=== PATIENT | male | born 1955 | race Asian ===

== ENCOUNTER 2018-07-31 10:26 | Outpatient (CLI) | payer OTHER, SELFPAY ==
[2018-07-31 11:02] LABS: HCT 43.3 % (40.0-50.0); HGB 14.5 g/dL (13.5-17.5)
[2018-07-31 11:50] LABS: Cholesterol 277 mg/dL (50-200); Glucose 96 mg/dL (70-100); HDL Cholesterol 39 mg/dL (40-60); LDL CHOLESTEROL 207 mg/dL (<100); Triglyceride 185 mg/dL (30-150)
== END 2018-07-31 10:46 ==
PROVIDERS: PCP General Practice; Visit Provider General Practice
DX: Z00.00 Encounter for general adult medical examination without abnormal findings (principal); E78.00 Pure hypercholesterolemia, unspecified
CPT/HCPCS: 36415; 80061; 82947; 83721; 85014; 85018

== ENCOUNTER 2018-08-24 10:13 | Day surgery (SDC) | payer OTHER, MEDICARE, SELFPAY ==
[2018-08-24 10:40] VITALS: BP 102/70; PULSE 73; RESP 16; TEMP 36.6; O2SAT 98
[2018-08-24] MEDS: Lactated Ringers 1,000 ML 80 ML IV (11:10)
--- NOTE | 2018-08-24 12:16 | COLE_ITS ---
Date of service: 08/24/18 Time of Service: 12:14 Colonoscopy Report Date of procedure: 08/24/18 Pre-op diagnosis general: heme+ Post-op diagnosis procedure note: same Procedure: ce Surgeon: Sivan Phillips Anesthesia proc note operative: GETA Estimated blood loss (mL): 0 Pathology: none sent Complications: None Disposition: same day Indications: see above Prep: Miralax Retraction Time: 10 mins Findings: ext hem/int hem- grade I Procedure Description: After informed consent was obtained the patient was taken to the procedure room and placed in a left decubitous position. Monitors were applied and a time out was done. The patients name, date of , procedure, allergies to medications and metal in their body was reviewed. The patient was then sedated. Once sedated and comfortable a rectal exam was done. sm ext hem at 6 oclokc position. Internal exam revealed a normal sphincter tone and no palpable masses. The prostate nl. The scope was then introduced and retrofelexed. sm/grade I internal hemorrhoids were identified. The scope was then advanced to the cecum [] difficulty. The TI and appendiceal orifice were identified. The prep was good. The scope was then slowly retracted over 12 minutes back into the rectum. there were no polyp/tics/AVM's or other anomalies . The scope was removed and the patient was woken up and taken back to Same day surgery in stable condition. The patient tolerated the procedure well and there were no immediate compli cations. Follow up: The patient should follow up in 10 years unless they develop changes in bowel habits or other new gastrointestinal complaints.
--- NOTE | 2018-08-24 12:17 | PDOC.DSDIS_ITS ---
Discharge Plan Disposition Patient Disposition: HOME Condition: Good Discharge Details Attending Provider: Sivan Phillips Primary Care Provider: Hao Neff Home Meds and New Rx's Prescriptions: Discontinued polyethylene glycol 3350 17 gram/dose powder 238 g PO ONCE Qty: 238 RF: 0 bisacodyl [Dulcolax (bisacodyl)] 5 mg tablet,delayed release (DR/EC) 5 mg PO ONCE Qty: 4 RF: 0 Discharge Instructions Additional Instructions: Findings: nl colon Follow up: 10 yr Please call if you develop: fevers >101.5 Nausea or Vomiting Abdominal pain that is not transient DAY SURGERY UNIT POST COLONOSCOPY INSTRUCTIONS 1. Because there will be medication in your system for the next 24 hours, you may feel a little sleepy. Your coordination will be affected. Therefore: a. Do not drive or operate dangerous equipment for 24 hours. b. Do not drink alcohol beverages for 24 hours (not even beer). c. Plan to go home and rest for the day. 2. Generally there are no restrictions on your activity after a day or so has gone by, but you may feel a bit fatigued for a few days. 3 After you arrive home you may have a light meal and return to a normal diet as you can tolerate it without feeling sick to your stomach. 4. After surgery, you may feel pain or discomfort. This should be only tr ansient, but if it persists please contact your doctor. 5. If there are any questions regarding the findings of your procedure, please feel free to contact your doctor. 6. If you are unable to contact your doctor with a problem, contact the hospital at [phone]. 7. Continue all your regular medications unless directed otherwise. I understand the above instructions and have no questions. Signature of Patient or Responsible Adult Escort Date/Time Name of Responsible Adult Escort Signature of Nurse Date/Time Activity:: no lifting over 10 #'s x24 or driving Diet:: lt sm bland diet x 24hrs DS: Diagnosis Discharge Diagnosis (1) External hemorrhoid: Status: Acute
[2018-08-24 14:33] VITALS: BP 90/63; PULSE 59; RESP 16; TEMP 35.6; O2SAT 100
--- NOTE | 2018-08-24 21:44 | PDOC.ANES ---
Date of service: 08/24/18 Time of Service: 21:44 Anesthesia Note Report Anesthesia Note: Fidel completed his colonoscopy today and tolerated the procedure and anesthetic well. One thing of note was that his systolic blood pressure in his right upper arm was 20-35 points lower than his left upper arm. This was consistent over many blood pressures and therefore blood pressure readings were used only on his left arm. His right side seemed to range between 50 and 70 systolic while his left was 90-100 systolic. I mentioned this to the [facility] nursing staff who mentioned this to Fidel. I will make his PCP, Dr. Neff, aware of this in case any followup is necessary given the possibility of abnormal flow in his subclavian artery.
== END 2018-08-24 13:13 | disposition home or self-care (01) ==
PROVIDERS: PCP General Practice; Visit Provider Surgery
PROC: 0DJD8ZZ Inspection of Lower Intestinal Tract, Via Natural or Artificial Opening Endoscopic (ICD-10-PCS; CPT 45378; principal; 2018-08-24 11:30)
DX: R19.5 Other fecal abnormalities (principal); K64.0 First degree hemorrhoids; R03.0 Elevated blood-pressure reading, without diagnosis of hypertension
CPT/HCPCS: 45378

== ENCOUNTER 2018-08-25 10:42 | Emergency (ER) | payer OTHER, MEDICARE, SELFPAY ==
[2018-08-25] VITALS (30 sets, daily range): BP systolic 99–111; BP diastolic 65–78; PULSE 57–83; RESP 12–27; TEMP 36.8; O2SAT 97–100
[2018-08-25 11:06] LABS: Absolute Basophil Count 0.02 k/cumm (0.0-0.2); Absolute Eosinophil Count 0.07 k/cumm (0.0-0.7); Absolute Lymphocyte Count 1.93 k/cumm (1.2-3.4); Absolute Monocyte Count 0.45 k/cumm (0.11-0.7); Basophils % 0.4; Eosinophils % 1.3; HCT 41.4 % (40.0-50.0); HGB 13.9 g/dL (13.5-17.5); Lymphocytes % 35.3; Mean Corp. HGB Concentration 33.6 g/dL (32.0-36.0); Mean Corpuscular Hemoglobin 26.4 pg (27.0-33.0); Mean Corpuscular Volume 78.7 fL (80-95); Mean Platelet Volume 11.7 fL (8.0-11.0); Monocytes % 8.2; Neutrophils % 54.8; Platelet Count 185 x1000/uL (130-400); RBC 5.26 m/cumm (4.50-6.00); RBC Distribution Width 13.8 % (11.8-14.1); White Blood Cell Count 5.47 k/cumm (4.4-10.8)
[2018-08-25] MEDS: Lactated Ringers 1,000 ML 500 ML IV (11:08)
[2018-08-25 11:23] LABS: ALT 22 U/L (12-78); AST 15 U/L (15-37); Albumin 3.9 g/dL (3.4-5.0); Alkaline Phosphatase 83 U/L (46-116); Anion Gap 11.5 mmol/L (3-11); BUN 12 mg/dL (7-18); Bilirubin, Total 0.6 mg/dL (0.2-1.0); CO2 27.5 mmol/L (21.0-32.0); CREATININE 0.89 mg/dL (0.70-1.30); Calcium 9.1 mg/dL (8.5-10.1); Chloride 105 mmol/L (98-107); Glucose 74 mg/dL (70-100); Magnesium 2.1 mg/dL (1.8-2.4); Potassium 3.4 mmol/L (3.5-5.1); Sodium 144 mmol/L (136-145); Total Protein 7.9 g/dL (6.4-8.2)
[2018-08-25 11:25] LABS: Troponin I < 0.02 ng/mL (0.00-0.06)
--- NOTE | 2018-08-25 11:38 | W.ED.GENAD ---
Discharge Plan Disposition Patient Disposition: HOME Condition: Stable Discharge Details Chief Complaint: Chest Pain Clinical Impression: Chest pain Primary Care Provider: Hao Neff ED Provider: Sergey Miller Home Meds and New Rx's Prescriptions: No Action No Known Home Meds RF: 0 Discharge Instructions Instructions: Chest Pain (ED) Additional Instructions: 1. Drink plenty of fluids. 2. Continue all medications as prescribed. 3. Acetaminophen 1000mg every 4 hours (up to 5 time a day) and/or ibuprofen 600mg every 6 hours as needed for fever or pain. 4. Zantac 300 mg at bedtime. Return to the Emergency Department (ED) if your condition worsens, does not improve as expected, or for ANY other concerns. Specifically, return if you have new or uncontrolled pain, worsening fever, difficulty breathing, vomiting, or are unable to drink fluids. Referrals: Paul Shah MD [ [facility] STAFF PHYSICIAN] - 08/27/18 Medical Decision Making 63-year-old gentleman presents with intermittent chest pain over the past month. Pain has been intermittent in nature and mostly worsened with activity and improved with rest. Today, he developed his typical recurrent symptoms and presents after his pain did not resolved as usual. Of note, he describes initial onset of after a meal. Nonfocal evaluation here with a nondiagnostic EKG. Limited bedside echo negative for pericardial effusion, LV dysfunction, or RV strain. Labs negative including a negative troponin. Repeat troponin also negative. Clinically stable on multiple re-evaluations with resolving symptoms. Treated with oral antacids without significant change in his chest discomfort. Reviewed clinical and diagnostic findings with recommendation for outpatient cardiology evaluation and higher level risk stratification. Discharge the plan for nightly ranitidine and outpatient cardiology follow-up in 2 days. Pt evaluated immediately prior to discharge with improved symptoms, normal vital signs, and tolerating PO. The patient feels appropriate for discharge home. Discussed clinical/diagnostic findings. Discharged with a clear plan for outpatient follow up. Given usual and customary return instructions prior to discharge. Medical Records Medical records reviewed: Yes I reviewed the patient's medical records. Imaging Data Radiologic Study: Attestation: I personally reviewed and interpreted this imaging study as follows: Imaging: Ultrasound (Bedside cardiac) My impression: Limited Cardiac Bedside Ultrasound. Findings include no pericardial effusion, no RVS, no decreased LVEF or LV WMA.. Images obtained, reviewed, and interpreted independently by myself. Images saved on ultrasound system for review. Lab Data Lab results reviewed: Yes I reviewed the patient's lab results. Lab results narrative: Laboratory Results - last 24 hr 08/25/18 08/25/18 08/25/18 10:57 10:57 13:40 WBC 5.47 RBC 5.26 Hgb 13.9 Hct 41.4 MCV 78.7 L MCH 26.4 L MCHC 33.6 RDW 13.8 Plt Count 185 MPV 11.7 H Immature Gran % 0.0 Neutrophils % 54.8 Lymphocytes % 35.3 Monocytes % 8.2 Eosinophils % 1.3 Basophils % 0.4 Absolute Neutrophils 3.00 Absolute Lymphocytes 1.93 Absolute Monocytes 0.45 Absolute Eosinophils 0.07 Absolute Basophils 0.02 Sodium 144 Potassium 3.4 L Chloride 105 Carbon Dioxide 27.5 Anion Gap 11.5 H BUN 12 Creatinine 0.89 Estimated GFR/1.73 m2 >= 60.00 Glucose 74 Calcium 9.1 Magnesium 2.1 Total Bilirubin 0.6 AST 15 ALT 22 Alkaline Phosphatase 83 Troponin I < 0.02 < 0.02 Total Protein 7.9 Albumin 3.9 ECG Data Attestation: I personally reviewed and interpreted this ECG (s) as follows: Prior ECG tracings: not available for review Interpretation: NSR 80 bpm normal axis and intervals no acute ST changes; RSR V1. Interpreted independently and contemporaneously by myself. HPI 63-year-old gent with a past medical history which includes external hemorrhoids, peptic ulcer disease, hyperlipidemia. Presents for evaluation of atypical chest pain. He has had intermittent chest pain over the past month which is mostly exertional in nature and seems to resolve with rest. He notes initially having discomfort while eating food and then has since had mild discomfort occurring intermittently with activity. Denies associat dyspnea, diaphoresis, presyncope, or atypical fatigue. He does note increased palpitations when having chest discomfort. He otherwise denies abdominal pain, change in bowel habits, melena, hematochezia. He has had no urinary symptoms. He denies focal extremity swelling or pain. He has no history of ACS or VTE. General Date/Time Provider Initiated Documentation: 08/25/18 10:58. Related Data Home Medications Medication Instructions Recorded Confirmed Unknown [No Known Home Meds] 08/25/18 08/25/18 Allergies Allergy/AdvReac Type Severity Reaction Status Date / Time Iodinated Contrast- Oral and Allergy Unknown Agitation Verified 08/25/18 10:49 IV Dye [Iodinated Contrast Media - IV Dye] Penicillins AdvReac Unknown Dizziness/L Verified 08/25/18 10:49 ightheade General Stated Complaint: Chest Pain PARMINDER: 2 Review of Systems Review of Systems All systems are reviewed and are unremarkable except as noted in HPI and below: CONSTITUTIONAL: no fevers/chills, no weakness or change in appetite EYES: no change in vision HEENT: no throat pain or difficulty swallowing; no neck pain CARDIOVASCULAR: chest pain with mild palpitations, no leg swelling, or diaphoresis RESPIRATORY: no cough, dyspnea, wheezing GASTROINTESTINAL: no abdominal pain, melena, nausea/emesis GENITOURINARY: no dysuria, flank pain, MUSCULOSKELETAL: no pack pain, myalgias, arthralgias INTEGUMENTARY: no rash, no wounds NEUROLOGIC: no headache, focal weakness, difficulty with speech, numbness PSYCHIATRIC: no confusion, no anxiety HEME: no easy bruising or bleeding ALLERGIC: no urticaria PFSH Medical History External hemorrhoid (Acute) Heme positive stool (Acute) Hyperlipidemia (Chronic) PUD (peptic ulcer disease) (Chronic) Surgical History History of colonoscopy (Chronic) Social History Smoking/Tobacco Use Status: Never Alcohol Intake: never Drug use: Never Do you feel safe at home: Yes Do you feel safe in your relationship?: Yes Exam Narrative Exam Narrative: Nursing note and vital signs have been reviewed and noted. GENERAL: alert, active, no acute distress, well -hydrated, well-nourished HEENT: atraumatic/normocephalic, PERRLA, EOMI, conjunctiva clear, external ears/canals normal, nasal mucosa normal NECK: supple, full range of motion, no mass, normal lymphadenopathy, no thyromegaly CARDIOVASCULAR: RRR, no murmurs, nl pulses, no edema PULMONARY: nl effort, no audible wheezing or stridor, nl breath sounds with no focal deficit. no chest wall tenderness ABDOMEN: soft, non-tender, non-distended, no mass, no organomegaly EXTREMITY: normal muscle tone, all joints with FROM, no deformity or tenderness SKIN: no exanthem appreciated NEURO: gross motor exam normal, normal stance and gait PSYCH: alert and oriented, Course Vital Signs Temperature 98.2 F 08/25/18 10:46 Pulse 83 08/25/18 10:46 Respiratory Rate 16 08/25/18 10:46 Blood Pressure 105/73 08/25/18 10:46 Pulse Oximetry 97 08/25/18 10:46 Temperature 98.2 F 08/25/18 10:46 Temperature Source Temporal Artery Scan 08/25/18 10:46 Pulse 83 08/25/18 10:46 Respiratory Rate 20 08/25/18 10:49 Respiratory Effort Non-Labored 08/25/18 10:49 Respiratory Depth Normal 08/25/18 10:49 Blood Pressure 105/73 08/25/18 10:46 Blood Pressure Position Sitting 08/25/18 10:46 Pulse Oximetry 97 08/25/18 10:46 Oxygen Delivery Method Room Air 08/25/18 10:46 Oxygen Flow Rate 0 08/25/18 10:46 Lab/Test Results Lab/Test Results: Laboratory Tests Range/Units 08/25/18 08/25/18 10:57 10:57 WBC (4.4-10.8) k/cumm 5.47 RBC (4.50-6.00) m/cumm 5.26 Hgb (13.5-17.5) g/dL 13.9 Hct (40.0-50.0) % 41.4 MCV (80-95) fL 78.7 L MCH (27.0-33.0) pg 26.4 L MCHC (32.0-36.0) g/dL 33.6 RDW (11.8-14.1) % 13.8 Plt Count (130-400) x1000/uL 185 MPV (8.0-11.0) fL 11.7 H Immature Gran % 0.0 Neutrophils % 54.8 Lymphocytes % 35.3 Monocytes % 8.2 Eosinophils % 1.3 Basophils % 0.4 Absolute Neutrophils (1.2-6.7) k/cumm 3.00 Absolute Lymphocytes (1.2-3.4) k/cumm 1.93 Absolute Monocytes (0.11-0.7) k/cumm 0.45 Absolute Eosinophils (0.0-0.7) k/cumm 0.07 Absolute Basophils (0.0-0.2) k/cumm 0.02 Sodium (136-145) mmol/L 144 Potassium (3.5-5.1) mmol/L 3.4 L Chloride (98-107) mmol/L 105 Carbon Dioxide (21.0-32.0) mmol/L 27.5 Anion Gap (3-11) mmol/L 11.5 H BUN (7-18) mg/dL 12 Creatinine (0.70-1.30) mg/dL 0.89 Estimated GFR/1.73 m2 (mL/min/1.73m2) >= 60.00 Glucose (70-100) mg/dL 74 Calcium (8.5-10.1) mg/dL 9.1 Magnesium (1.8-2.4) mg/dL 2.1 Total Bilirubin (0.2-1.0) mg/dL 0.6 AST (15-37) U/L 15 ALT (12-78) U/L 22 Alkaline Phosphatase (46-116) U/L 83 Troponin I (0.00-0.06) ng/mL < 0.02 Total Protein (6.4-8.2) g/dL 7.9 Albumin (3.4-5.0) g/dL 3.9
[2018-08-25 14:09] LABS: Troponin I < 0.02 ng/mL (0.00-0.06)
== END 2018-08-25 14:35 | disposition home or self-care (01) ==
PROVIDERS: Emergency Provider Emergency Medicine; PCP General Practice
DX: R07.9 Chest pain, unspecified (principal)
CPT/HCPCS: 36415; 80053; 93005; 96360; 96361; 99285; 83735; 84484; 85025; 93010

== ENCOUNTER 2019-03-06 11:15 | Emergency (ER) | payer OTHER, MEDICARE, SELFPAY ==
[2019-03-06 11:22] VITALS: BP 103/77; PULSE 69; RESP 18; TEMP 35.9; O2SAT 97
--- NOTE | 2019-03-06 11:37 | ED.GENADUL_ITS ---
Discharge Plan Disposition Patient Disposition: HOME Condition: Stable Discharge Details Chief Complaint: Laceration Clinical Impression: Laceration of left index finger Primary Care Provider: Hao Neff ED Provider: Richard Murray Home Meds and New Rx's Prescriptions: No Action No Known Home Meds RF: 0 Discharge Instructions Instructions: Finger Laceration (ED) Additional Instructions: Leave bandage in place for 4 to 5 days, then removed. Underlying Steri-Strips and tissue adhesive will remain on for another 4 to 5 days time. Your tetanus status was updated today. Return for any acute concern. Medical Decision Making 64-year-old male with left index finger laceration from a knife at home. Irrigated, cleansed and examined in a bloodless field without evidence of foreign body. Closed with Steri-Strips and tissue adhesive. Tetanus updated. Stable for discharge to home. HPI General Mode of arrival: ambulatory . Date/Time Provider Initiated Documentation: 03/06/19 11:20 . Limitations to Documentation: no limitations . Information obtained by: patient . History of Present Illness 64 year old M presents to the emergency department with the chief complaint of Left index finger laceration, described as mild, Quality is described as dull and constant, and is localized to the left and upper extremity. Patient reports no radiation. Patient started experiencing this hour(s) and it has been constant. No relieving factors improve symptom(s), No exacerbating factors reported . Patient notes no other symptoms.. Patient did receive the following treatments prior to arrival, none Related Data Home Medications Medication Instructions Recorded Confirmed Unknown [No Known Home Meds] 08/25/18 03/06/19 Allergies Allergy/AdvReac Type Severity Reaction Status Date / Time Iodinated Contrast Media Allergy Unknown Agitation Verified 03/06/19 11:33 [Iodinated Contrast Media - IV Dye] Penicillins AdvReac Unknown Dizziness/L Verified 03/06/19 11:33 ightheade General Stated Complaint: Laceration PARMINDER: 4 Review of Systems Review of Systems Narrative: No numbness or tingling. Tetanus out of date. COUNT INCLUDES THE [facility] Medical History Abnormal colonoscopy (Resolved) 08/24/18, Dr Phillips, normal, The patient should follow up in 10 years unless they develop changes in bowel habits or other new gastrointestinal complaints. External hemorrhoid (Acute) Heme positive stool (Acute) Per Dr Neff on routine exam. Hyperlipidemia (Chronic) PUD (peptic ulcer disease) (Chronic) Social History Smoking/Tobacco Use Status: Never Alcohol Intake: never Drug use: Never Do you feel safe at home: Yes Do you feel safe in your relationship?: Yes Exam Narrative Exam Narrative: GEN: awake, alert, oriented 3. Pleasant, well groomed, interactive. HEAD: Normocephalic, atraumatic ENT: Mucous membranes moist, oropharynx unremarkable, External ear exam unremarkable EYES: PERRL, EOMI NECK: Full ROM, no NATALIO, no menigismus EXT: Full ROM, no edema, no rash. Left index finger distal volar pad with vertically oriented linear laceration measuring approximate 1.5 cm including into the distal nailbed. Germinal matrix intact. Capillary refill less than 2 seconds. Distal sensation intact. Neuro: Grossly normal neurologic exam, conversant, interactive. Psych: Speech fluent, thoughts congruent, affect normal Course Vital Signs Vital signs: Vital Signs Temperature 35.9 C L 03/06/19 11:22 Pulse 69 03/06/19 11:22 Respiratory Rate 18 03/06/19 11:22 Blood Pressure 103/77 03/06/19 11:22 Pulse Oximetry 97 03/06/19 11:22 Temperature 35.9 C L 03/06/19 11:22 Temperature Source Tympanic 03/06/19 11:22 Pulse 69 03/06/19 11:22 Respiratory Rate 18 03/06/19 11:22 Respiratory Effort Non-Labored 03/06/19 11:33 Blood Pressure 103/77 03/06/19 11:22 Blood Pressure Position Sitting 03/06/19 11:22 Pulse Oximetry 97 03/06/19 11:22 Oxygen Delivery Method Room Air 03/06/19 11:22 Oxygen Flow Rate 0 03/06/19 11:22 Procedures Laceration Laceration 1: Site: hand Side (If applicable): left Size (cm): 1.5 Description: linear Depth: simple, single layer Pre-repair: wound explored Skin layer closed with: other (Tissue adhesive)
== END 2019-03-06 11:55 | disposition home or self-care (01) ==
PROVIDERS: Emergency Provider Emergency Medicine; PCP General Practice
DX: S61.211A Laceration without foreign body of left index finger without damage to nail, initial encounter (principal); W26.0XXA Contact with knife, initial encounter
CPT/HCPCS: 12001; 90471

== ENCOUNTER 2019-06-22 11:57 | Emergency (ER) | payer OTHER, SELFPAY ==
[2019-06-22 12:03] VITALS: BP 116/74; PULSE 68; RESP 16; TEMP 36.5; O2SAT 96
--- NOTE | 2019-06-22 12:12 | ED.GENADUL_ITS ---
Discharge Plan Disposition Patient Disposition: HOME Condition: Improving Discharge Details Chief Complaint: Orthopedic Clinical Impression: Epicondylitis, lateral (tennis elbow) Primary Care Provider: Hao Neff ED Provider: Richard Murray Home Meds and New Rx's Prescriptions: No Action No Known Home Meds RF: 0 Discharge Instructions Instructions: Tennis Elbow Exercises (GEN), Tennis Elbow (ED) Additional Instructions: Sling for 2 days for rest. Wear the provided brace to distribute the tension on your tendon. See enclosed tennis elbow exercises. May continue Tylenol as needed for pain. Apply ice to reduce discomfort. Medical Decision Making 64-year-old male presents with right elbow pain for 2-1/2 weeks. He has an exam consistent with right elbow lateral epicondylitis. Will treat with a small burst of oral steroids, resting in a sling for 2 days, will refer to physical therapy and also prescribe an arm band. He understands homecare as well as indications to seek reevaluation. HPI General Mode of arrival: ambulatory . Date/Time Provider Initiated Documentation: 06/22/19 11:57 . Limitations to Documentation: no limitations . Information obtained by: patient . History of Present Illness 64 year old M presents to the emergency department with the chief complaint of Right elbow pain for 2 weeks, described as moderate, Quality is described as dull and constant, and is localized to the right and upper extremity. Patient reports no radiation. Patient started experiencing this day(s) and it has been intermittent. Rest improves symptom(s), Movement worsens symptoms . Patient notes no other symptoms.. Patient did receive the following treatments prior to arrival, NSAID Related Data Home Medications Medication Instructions Recorded Confirmed Unknown [No Known Home Meds] 08/25/18 06/22/19 Allergies Allergy/AdvReac Type Severity Reaction Status Date / Time Iodinated Contrast Media Allergy Unknown Agitation Verified 06/22/19 12:05 [Iodinated Contrast Media - IV Dye] Penicillins AdvReac Unknown Dizziness/L Verified 06/22/19 12:05 ightheade General Stated Complaint: Orthopedic PARMINDER: 4 Review of Systems Narrative: No numbness, tingling, weakness. No fall or injury. 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 [facility] Social History Smoking/Tobacco Use Status: Never Alcohol Intake: never Drug use: Never Do you feel safe at home: Yes Do you feel safe in your relationship?: Yes Exam Narrative Exam Narrative: GEN: awake, alert, oriented 3. Pleasant, well groomed, interactive. HEAD: Normocephalic, atraumatic ENT: Mucous membranes moist, oropharynx unremarkable, External ear exam u nremarkable EYES: PERRL, EOMI CHEST/RESP: Nontender, clear to auscultation bilateral, no wheeze/rhonchi/rales CARDIOVASCULAR: RRR, no murmur, rub estee. 2+ Rad pulse bilateral EXT: Full ROM, the right elbow is tender with resisted extension of the wrist at the insertion of extensor tendons overlying the right lateral condyle. Sensation intact throughout. Motor normal throughout. Capillary fill less than 2 seconds. Neuro: Grossly normal neurologic exam, conversant, interactive. Psych: Speech fluent, thoughts congruent, affect normal Course Vital Signs Vital signs: Vital Signs Temperature 36.5 C 06/22/19 12:03 Pulse 68 06/22/19 12:03 Respiratory Rate 16 06/22/19 12:03 Blood Pressure 116/74 06/22/19 12:03 Pulse Oximetry 96 06/22/19 12:03 Temperature 36.5 C 06/22/19 12:03 Temperature Source Skin 06/22/19 12:03 Pulse 68 06/22/19 12:03 Respiratory Rate 16 06/22/19 12:03 Respiratory Effort Non-Labored 06/22/19 12:03 Blood Pressure 116/74 06/22/19 12:03 Blood Pressure Position Sitting 06/22/19 12:03 Pulse Oximetry 96 06/22/19 12:03 Oxygen Delivery Method Room Air 06/22/19 12:03 Oxygen Flow Rate 0 06/22/19 12:03 Pain Level 9 06/22/19 12:03
== END 2019-06-22 12:28 | disposition home or self-care (01) ==
PROVIDERS: Emergency Provider Emergency Medicine; PCP General Practice
DX: M77.11 Lateral epicondylitis, right elbow (principal); M70.821 Other soft tissue disorders related to use, overuse and pressure, right upper arm; X50.3XXA Overexertion from repetitive movements, initial encounter; Y99.0 Civilian activity done for income or pay
CPT/HCPCS: 99283; L3650

== ENCOUNTER 2020-12-03 16:37 | Emergency (ER) | payer OTHER, SELFPAY ==
[2020-12-03] VITALS (14 sets, daily range): BP systolic 94–115; BP diastolic 65–80; PULSE 54–68; RESP 12–18; TEMP 36.7; O2SAT 97–100
--- NOTE | 2020-12-03 16:30 | RT.EKG_ITS ---
APPROVED REPORT Exam: Resting ECG Reason for Exam: CHEST PAIN Patient Location: E HR:61 bpm ECG Measurements Heart Rate 61 AXIS IL 154 P 8 QRSd 99 QRS 57 QT 398 T 39 QTc 401 Conclusion Sinus rhythm...normal P axis, V-rate 60- 99, no st elevation
--- NOTE | 2020-12-03 16:45 | DI.CT_ITS ---
Exam(s) CT HEAD WO EXAM: CT HEAD WO CLINICAL HISTORY: frontal headache. TECHNIQUE: Imaging Protocol: Axial computed tomography images with coronal and sagittal reformatted images were created and reviewed COMPARISON: CT HEAD WITHOUT CONTRAST from 06/05/2015 FINDINGS: Ventricles and Extra axial spaces: Normal in size and morphology for the patient's age. Hemorrhage: None. Cerebral parenchyma: Normal. Midline shift: None. Brainstem/Cerebellum: Normal. Calvarium: Normal. Visualized Paranasal sinuses/Mastoids: Poorly pneumatized left mastoid. Bilateral maxillary sinus me dial antrectomy surgery. Minimal sinus mucosal thickening. No air-fluid levels or bony destruction. Soft Tissues: Orbits unremarkable. IMPRESSION: No acute intracranial process. RADIATION DOSE DELIVERED: 681.84mGy.cm Total DLP DATA REPOSITORY: All CT scans at this facility are submitted to the National Radiology Data Registry (NRDR) Dose Index Registry (DIR) with the [employer] (A[employer]). RADIATION OPTIMIZATION: All CT scans at this facility use at least one of these dose optimization te chniques: automated exposure control; mA and/or kV adjustment per patient size (includes targeted exa ms where dose is matched to clinical indication); or iterative reconstruction.
--- NOTE | 2020-12-03 16:47 | ED.GENADUL_ITS ---
Discharge Plan Disposition Patient Disposition: HOME Condition: Good Discharge Details Clinical Impression: Chest pain Primary Care Provider: Hao Neff ED Provider: Jose De Jesus Pompa Home Meds and New Rx's Prescriptions: No Action No Known Home Meds RF: 0 Discharge Instructions Instructions: Chest Pain (ED) Additional Instructions: At this time your cardiac work-up is returned negative and is very reassuring. Please follow-up closely with your family doctor for continued assessment. There may be a component of esophageal irritation, potentially from spicy food. Please avoid spicy foods for the next week, to note any potential change. Additionally please try taking Pepto-Bismol or Maalox if this occurs again. If that does not change any of your symptoms please return immediately for reassessment in the ED. If you notice any worsening of your symptoms, or any new symptoms such as vomiting, diarrhea, fever, chills, shortness of breath, chest pain, numbness, weakness, or fainting , please return immediately to the emergency department for reevaluation. Please follow up with your primary care provider as soon as possible for reassessment and reevaluation. As always, it was a pleasure participating in your medical care today. Referrals: Hao Neff MD [Primary Care Provider] - Discharge Data Discharge Date/Time-TO BE ENTERED AT DEPARTURE: 12/03/20 21:24 Medical Decision Making <Richard Murray MD - Last Filed: 12/03/20 19:27> 65-year-old male presents from home complaining of onset of substernal chest tightness began this morning. Similar to previous that he had in the past. States he has had hypercholesterolemia in the past and has taken statins, not currently. He is worried for for a heart attack. Also states that he has had a frontal headache which is unusual. History of aneurysm of the brain in his sister. Patient arrives to the ER with unremarkable and stable vital signs. His exam is reassuring. Differential diagnosis includes GERD, ACS, atypical chest pain. Patient IV access established, given Mylanta, and referred for laboratory testing, EKG, chest x-ray, CT scan of the head. Chest x-ray without acute findings. CT scan of the head unremarkable for acute intracranial process, there is evidence of chronic changes to the sinuses. Laboratories: White count 7, hematocrit 42, platelets 227. Chemistries unremarkable, troponin negative. Will observe on a teletypesetter monitor and repeat troponin. Patient states she is feeling improved and better. Will sign out to Dr. Pompa at change of shift, please see his note regarding final impression and disposition. <Jose De Jesus Pompa DO - Last Filed: 12/04/20 02:22> Case was signed out to me pending repeat troponin and EKG. Please refer to Dr. Murray's HPI, physical exam, assessment and plan. Repeat EKG relatively unchanged, no evidence of ACS or STEMI. No evidence of acute ischemic changes. Repeat troponin has returned normal. Reassessment the patient feels notably improved, he feels well and would like to go home. Chest pain completely resolved after GI cocktail. Discussed the importance of close PCP follow-up, as well as avoidance of spicy foods. Discussed red flags which to return. Will help set up the patient for a new PCP. I have extensively reviewed the treatment plan and discharge instructions with the patient. I have addressed all patient concerns at this time. The patient was made aware of what symptoms to monitor for that would warrant a return to the emergency department. Discussed the plan with the patient, they demonstrate verbal understanding and agreement with our assessment and plan at this time. The documentation in this chart was dictated using [employer] dictation software. Please excuse any dictation errors. HPI <Richard Murray MD - Last Filed: 12/03/20 19:27> General Mode of arrival: ambulatory . Date/Time Provider Initiated Documentation: 12/03/20 16:38 . Limitations to Documentation: no limitations . Information obtained by: patient . History of Present Illness 65 year old M presents to the emergency department with the chief complaint of Chest tightness, central, began this morning, described as moderate and similar to prior episodes, Quality is described as other (Feels tight), and is localized to the chest. Patient reports no radiation. Patient started experiencing this hour(s) and it has been constant. No relieving factors improve symptom(s), Patient notes weakness; denies cough and fever/chills. Patient did receive the following treatments prior to arrival, none Related Data Home Medications Medication Instructions Recorded Confirmed Unknown [No Known Home Meds] 08/25/18 06/22/19 Allergies Allergy/AdvReac Type Severity Reaction Status Date / Time Iodinated Contrast Media Allergy Unknown Agitation Verified 06/22/19 12:05 [Iodinated Contrast Media - IV Dye] Penicillins AdvReac Unknown Dizziness/L Verified 06/22/19 12:05 ightheade General Stated Complaint: Chest Pain PARMINDER: 2 Review of Systems <Richard Murray MD - Last Filed: 12/03/20 19:27> Narrative: Mild frontal headache. No recent illness. No leg pain or swelling. No shortness of breath. See HPI. 8 systems reviewed and otherwise negative PFSH <Richard Murray MD - Last Filed: 12/03/20 19:27> Medical History (Updated 12/03/20 @ 20:57 by Jose De Jesus Pompa DO) Abnormal colonoscopy 08/24/18, Dr Phillips, normal, The patient should follow up in 10 years unless they develop changes in bowel habits or other new gastrointestinal complaints. External hemorrhoid Heme positive stool Per Dr Neff on routine exam. Hyperlipidemia PUD (peptic ulcer disease) Social History Smoking/Tobacco Use Status: Never Smoking risk assessment performed?: Yes Alcohol Intake: never Drug use: Never Do you feel safe at home: Yes Do you feel safe in your relationship?: Yes Exam <Richard Murray MD - Last Filed: 12/03/20 19:27> Narrative Exam Narrative: GEN: awake, alert, oriented 3. Pleasant, well groomed, interactive. HEAD: Normocephalic, atraumatic ENT: Mucous membranes moist, oropharynx unremarkable, External ear exam unremarkable EYES: PERRL, EOMI NECK: Full ROM, no NATALIO, no menigismus CHEST/RESP: Nontender, clear to auscultation bilateral, no wheeze/rhonchi/rales CARDIOVASCULAR: RRR, no murmur, rub estee. 2+ Rad pulse bilateral ABDOMEN: Soft, nontender, no mass. +Bowel sounds EXT: Full ROM, no edema, no rash Neuro: Grossly normal neurologic exam, conversant, interactive. Psych: Speech fluent, thoughts congruent, affect normal Course <Richard Murray MD - Last Filed: 12/03/20 19:27> Vital Signs Vital signs: Vital Signs Temperature 36.7 C 12/03/20 16:42 Pulse 68 12/03/20 16:42 Blood Pressure 110/77 12/03/20 16:42 Pulse Oximetry 98 12/03/20 16:42 Temperature 36.7 C 12/03/20 16:42 Pulse 68 12/03/20 16:42 Blood Pressure 110/77 12/03/20 16:42 Blood Pressure Position Sitting 12/03/20 16:42 Pulse Oximetry 98 12/03/20 16:42 Oxygen Delivery Method Room Air 12/03/20 16:42 Oxygen Flow Rate 0 12/03/20 16:42 Pain Level 4 12/03/20 16:42 Sign Out <Richard Murray MD - Last Filed: 12/03/20 19:27> Sign Out Data: Sign Out Comment: Followup repeat troponin Last updated by Richard Murray MD at 12/03/20 19:56
[2020-12-03 16:59] LABS: Abs Immature Grans 0.02 10^3/uL (0.0-0.06); Absolute Basophil Count 0.04 10^3/uL (0.0-0.2); Absolute Eosinophil Count 0.07 10^3/uL (0.0-0.7); Absolute Lymphocyte Count 2.56 10^3/uL (1.2-3.4); Absolute Monocyte Count 0.54 10^3/uL (0.1-0.8); Absolute Neutrophil Count 4.02 10^3/uL (1.2-6.7); Basophils % 0.6; HCT 42.4 % (40.0-50.0); HGB 13.7 g/dL (13.5-17.5); Immature Grans % 0.3; Lymphocytes % 35.3; MCH 26.3 pg (27.0-33.0); MCHC 32.3 % (32.0-36.0); MCV 81.4 fL (80-95); MPV 11.6 fL (8.0-11.0); Monocytes % 7.4; Neutrophils % 55.4; Nucleated RBC 0 %; Platelet Count 227 10^3/uL (130-400); RBC 5.21 10^6/uL (4.36-5.78); RDW 12.8 % (11.8-14.1); RDW-SD 37.7 fL; WBC 7.25 10^3/uL (4.4-10.8)
[2020-12-03 17:18] LABS: ALT 22 U/L (16-63); AST 13 U/L (15-37); Albumin 4.1 g/dL (3.4-5.0); Alkaline Phosphatase 74 U/L (46-116); Anion Gap 6.7 mmol/L (3-11); BUN 18 mg/dL (7-18); Bilirubin, Total 0.5 mg/dL (0.2-1.0); CO2 29.3 mmol/L (21.0-32.0); CREATININE 0.9 mg/dL (0.70-1.30); Calcium 9.3 mg/dL (8.5-10.1); Chloride 106 mmol/L (98-107); Glucose 90 mg/dL (74-106); Magnesium 2.2 mg/dL (1.8-2.4); Potassium 3.9 mmol/L (3.5-5.1); Sodium 142 mmol/L (136-145)
[2020-12-03 17:21] LABS: Troponin I < 0.05 ng/mL (<0.06)
[2020-12-03] MEDS: Normal Saline 1,000 ML 125 ML IV (17:25)
--- NOTE | 2020-12-03 18:08 | DI.VRAD_ITS ---
PROCEDURE INFORMATION: Exam: XR Chest Exam date and time: 12/03/2020 4:50 PM Age: 65 years old Clinical indication: Pain; Chest pressure TECHNIQUE: Imaging protocol: XR of the chest. Views: 2 views. COMPARISON: CR CHEST 2 VIEWS PA,LAT 05/06/2015 12:01 FINDINGS: Lungs: Unremarkable. No consolidation. Pleural spaces: Unremarkable. No pleural effusion. No pneumothorax. Heart/Mediastinum: Unremarkable. No cardiomegaly. Bones/joints: Unremarkable for patient's age. IMPRESSION: No acute cardiopulmonary findings. Dictated and Authenticated by: Claudia Haines MD. Ordering:SILKE Ramos MD
[2020-12-03] MEDS: Acetaminophen 500 MG TAB 1000 MG PO (18:17)
--- NOTE | 2020-12-03 18:21 | DI.VRAD_ITS ---
PROCEDURE INFORMATION: Exam: CT Head Without Contrast Exam date and time: 12/03/2020 4:57 PM Age: 65 years old Clinical indication: Pain; Headache TECHNIQUE: Imaging protocol: Computed tomography of the head without contrast. COMPARISON: CT HEAD WITHOUT CONTRAST 05/06/2015 11:48 FINDINGS: Brain: Unremarkable. No intracranial hemorrhage. Unremarkable white matter. No mass effect. Cerebral ventricles: No ventriculomegaly. Paranasal sinuses: Prior maxillary sinus surgery. Mucosal thickening of the ethmoid air cells. Mastoid air cells: Trace fluid in the left mastoid air cells. Sclerotic left mastoid air cells consistent with chronic mastoiditis. Vasculature: Atherosclerotic disease. Bones/joints: Unremarkable. No acute fracture. Soft tissues: Unremarkable. IMPRESSION: 1. No acute intracranial abnormality. 2. Sinusitis. 3. Chronic left mastoiditis. Dictated and Authenticated by: Claudia Haines MD. Ordering:SILKE Ramos MD
--- NOTE | 2020-12-03 19:45 | RT.EKG_ITS ---
APPROVED REPORT Exam: Resting ECG Reason for Exam: chest pain Patient Location: E HR:58 bpm ECG Measurements Heart Rate 58 AXIS [place] 174 P 11 QRSd 102 QRS 64 QT 426 T 42 QTc 419 Conclusion Sinus bradycardia...rate< 60 Physician: no stemi
[2020-12-03 20:08] LABS: Troponin I < 0.05 ng/mL (<0.06)
== END 2020-12-03 21:24 | disposition home or self-care (01) ==
PROVIDERS: Emergency Medicine; Emergency Provider Student in an Organized Health Care Education/Training Program; PCP General Practice
DX: R07.89 Other chest pain (principal); R51.9 Headache, unspecified
CPT/HCPCS: 36415; 80053; 93005; 96360; 96361; 99285; 70450; 83735; 84484; 85025; 93010; 99284

== ENCOUNTER → 2023-11-30 01:24 | Outpatient (CLI) | payer MEDICARE, SELFPAY ==
--- NOTE | 2023-11-30 06:00 | ETT_ITS ---
APPROVED REPORT Exam: Exercise Treadmill Patient Location: Out-Patient Room/Bed: Stress Nurse: Thiago Oh RN and Jones Johnson RN Ordering Provider:TOBY LYLES, Contact Number: [phone] BMI: 19.91 Baseline Rhythm: Sinus Rhythm. Indications: Shortness of Breath on Exertion; Hyperlipidemia. Medical History Medical History: Hyperlipidemia; PVD. Cardiac Medications: None. Allergies: Iodinated Contrast Media; Penicillins. Cardiac Risk Factors: Hyperlipidemia; PVD. Previous Cardiac Procedures: None. Pretest Chest Pain Characteristics: None. Exercise History: Indeterminate. Physical Disabilities: None. Lung Sounds: Clear bilaterally throughout, anterior and posterior. Heart Sounds: S1 and S2 auscultated. Stress Test Details Test: Exercise stress testing was performed using a Blair protocol. Rest Stress HR Resting HR Supine: 66 bpm Max Heart Rate (APMHR): 150 bpm Resting HR Standin bpm Target HR (85% APMHR): 128 bpm Max HR Achieved: 133 bpm % of APMHR: 89 Recovery HR: 76 bpm HR response to stress: Normal HR response to stress. BP Resting BP Supine: 110/58 mmHg Resting BP Standin/60 mmHg Max BP: 126/60 mmHg Recovery BP: 108/62 mmHg BP response to stress: Normal blood pressure response to stress. ECG Resting ECG: Sinus Rhythm. Ectopy: None. Stress ECG: Sinus Tachycardia. ST Change: No significant ST segment changes noted. Arrhythmia: None. Recovery ECG: Sinus Rhythm. Recovery ST Change: No significant ST segment changes noted. Recovery Arrhythmia: None. Clinical Reason for Termination: Target HR Achieved; Fatigue; Dyspnea. Stress Symptoms: General Fatigue; Dyspnea. Exercise duration: 06 min36 sec Highest Stage Reached: Stage 3: 3.4 mph at 14% grade. Exercise capacity: 7.96 METs Angina Score: None Medina Treadmill Score: 5.9 Rate Pressure Product: [id number] Stress ECG Conclusion 1. Resting electrocardiogram was normal 2. Patient exercised on the Blair protocol completed a workload of 7.96 METS 3. Normal heart rate and blood pressure response to exercise. The patient achieved 89% of predicted heart rate for age 4. There was no electrocardiographic evidence of myocardial ischemia 5. There were no significant dysrhythmias Medina Treadmill Score is 5.9 which is Low risk. Stress Test Summary STAGE Time (mins) Speed (mph) Grade (%) HR BP SpO2 SYMPTOMS METS Supine 66 110/58 96 Standing 66 90/60 96 1 3 1.7 10 109 100/60 96 4.5 2 6 2.5 12 122 124/70 98 Pt. complaining of mild SOB. 7 3 9 3.4 14 133 Pt. complaining of mild SOB. 10 1 min recovery 108 126/60 96 Pt. complaining of mild SOB. 3 min recovery 81 104/60 98 6 min recovery 76 108/62 98 Pt. denies any SOB. Pt. was conversing pleasantly with nursing staff upon leaving the Stress Lab. Pt. left ambulatory in no apparent distress.
== END ==
PROVIDERS: PCP Nurse Practitioner Family; Visit Provider Nurse Practitioner Family
DX: R06.02 Shortness of breath (principal); E78.5 Hyperlipidemia, unspecified
CPT/HCPCS: 93016; 93018; 93017

== ENCOUNTER 2023-12-05 01:31 | Outpatient (CLI) | payer MEDICARE, SELFPAY ==
[2023-12-05 07:52] LABS: Calculated LDL 180 mg/dL (<100); Cholesterol 249 mg/dL (<200); HDL Cholesterol 38 mg/dL (40-60); Triglyceride 157 mg/dL (<150)
[2023-12-05 08:28] LABS: Hemoglobin A1C 5.3 % (<5.7)
== END 2023-12-05 01:32 | disposition home or self-care (01) ==
PROVIDERS: PCP Nurse Practitioner Family; Visit Provider Nurse Practitioner Family
DX: E78.5 Hyperlipidemia, unspecified (principal); Z00.00 Encounter for general adult medical examination without abnormal findings
CPT/HCPCS: 36415; 80061; 83036

== ENCOUNTER 2024-03-19 02:26 | Outpatient (CLI) | payer MEDICARE, SELFPAY ==
[2024-03-19 10:28] LABS: Creatine Kinase 88 U/L (39-308)
[2024-03-19 10:30] LABS: ALT 90 U/L (16-63); AST 53 U/L (15-37); Alkaline Phosphatase 95 U/L (46-116); BUN 12 mg/dL (7-18); Bilirubin, Total 0.98 mg/dL (0.2-1.0); Calcium 9.4 mg/dL (8.5-10.1); Calculated LDL 120 mg/dL (<100); Chloride 107 mmol/L (98-107); Cholesterol 218 mg/dL (<200); Estimated GFR 80.47 (mL/min/1.73m2); Glucose 89 mg/dL (74-106); HDL Cholesterol 52 mg/dL (40-60); Potassium 4.1 mmol/L (3.5-5.1); Sodium 146 mmol/L (136-145); Total Protein 8.1 g/dL (6.4-8.2); Triglyceride 231 mg/dL (<150)
== END 2024-03-19 02:27 | disposition home or self-care (01) ==
PROVIDERS: PCP Nurse Practitioner Family; Referring Provider Nurse Practitioner Family; Visit Provider Nurse Practitioner Family
DX: E78.5 Hyperlipidemia, unspecified (principal)
CPT/HCPCS: 36415; 80053; 80061; 82550

== ENCOUNTER 2024-05-10 01:46 | Outpatient (CLI) | payer MEDICARE, SELFPAY ==
[2024-05-10 11:01] LABS: ALT 40 U/L (16-63); AST 24 U/L (15-37); Alkaline Phosphatase 89 U/L (46-116); Bilirubin, Total 0.82 mg/dL (0.2-1.0); HDL Cholesterol 43 mg/dL (40-60); LDL CHOLESTEROL 189 mg/dL (<100); Total Protein 8.1 g/dL (6.4-8.2)
[2024-05-10 11:13] LABS: Bilirubin, Direct 0.1 mg/dL (0.0-0.2)
== END 2024-05-10 01:47 | disposition home or self-care (01) ==
LOC: LBO 01:46
PROVIDERS: PCP Nurse Practitioner Family; Visit Provider Nurse Practitioner Family
DX: E78.5 Hyperlipidemia, unspecified (principal)
CPT/HCPCS: 36415; 80076; 83721; 83718

== ENCOUNTER 2024-06-17 01:18 | Outpatient (CLI) | payer MEDICARE, SELFPAY ==
[2024-06-20 16:35] LABS: Apolipoprotein B, Serum 166 mg/dL; Beta VLDL Cholesterol Not Detected mg/dL (<15); Beta VLDL Triglycerides Not Detected mg/dL (<15); Cholesterol, Total, CDC 270 mg/dL; Chylomicron Cholesterol 1 mg/dL; Chylomicron Triglycerides 23 mg/dL; HDL Cholesterol, CDC 29 mg/dL (>=40); LDL Cholesterol 190 mg/dL; LDL Triglycerides 88 mg/dL (<=50); Lp(a) Cholesterol 9 mg/dL (<5); LpX Not detected; Triglycerides, CDC 263 mg/dL; VLDL Cholesterol 41 mg/dL (<30); VLDL Triglycerides 137 mg/dL (<120)
== END 2024-06-17 01:19 | disposition home or self-care (01) ==
PROVIDERS: PCP Nurse Practitioner Family; Visit Provider Nurse Practitioner Family
DX: E78.5 Hyperlipidemia, unspecified (principal)
CPT/HCPCS: 36415; 80061; 82172; 82664